=== PATIENT | female | born 1980 | race Caucasian/White ===

== ENCOUNTER 2019-03-12 23:01 | Emergency (ER) | payer MEDICAID ==
[~2019-03-12] VITALS: Ht 160 cm; Wt 71.2 kg
[2019-03-12 23:25] VITALS: BP 122/78
--- NOTE | 2019-03-12 23:30 | NUR ---
PT AMBULATED BACK TO [facility]
--- NOTE | 2019-03-12 23:54 | NUR ---
Pt taken to bed 1.
--- NOTE | 2019-03-12 23:57 | NUR ---
38 y/o F presented to ED with c/o throat pain x 1 month. Painful swallowing. Per pt, " it feels like something is stuck in my throat. when i swallow or breathe it hurts." No exudate or rendess noted to throat. O2 saturation 96% on room air. ERMD notified. will continue to monitor.
--- NOTE | 2019-03-13 01:05 | NUR ---
PT taken to CT
--- NOTE | 2019-03-13 01:18 | NUR ---
PT RETURN FROM CT
--- NOTE | 2019-03-13 01:30 | NUR ---
Pt awake and alert. VSS. Will continue to monitor.
== END 2019-03-13 02:10 | disposition home or self-care (01) ==
LOC: MED 23:01
DX: M50.30 Other cervical disc degeneration, unspecified cervical region (principal); Z88.0 Allergy status to penicillin
CPT/HCPCS: 70360; 70490; 99284